=== PATIENT | male | born 1980 | race Caucasian/White ===

== ENCOUNTER 2021-01-21 03:53 | Emergency (ER) | payer OTHER ==
[~2021-01-21] VITALS: Ht 190.5 cm; Wt 133.8 kg
[2021-01-21] MEDS ORDERED: TYLENOL # 31 EA PO (04:11)
[2021-01-21] MEDS ORDERED: PREDNISONE 20 MG TAB PO ONE (04:15)
[2021-01-21] MEDS ORDERED: KETOROLAC TROMETHAMINE 60 MG/2 ML VIAL IM ONE (04:15)
[2021-01-21] MEDS ORDERED: PREDNISONE20 MG PO (04:18)
[2021-01-21] MEDS ORDERED: PREDNISONE 20 MG TAB ONE (04:19)
== END 2021-01-21 04:41 | disposition home or self-care (01) ==
LOC: FSED 04:04
DX: M79.674 Pain in right toe(s) (principal); M10.9 Gout, unspecified; K21.9 Gastro-esophageal reflux disease without esophagitis; Z87.442 Personal history of urinary calculi
CPT/HCPCS: 99282; J1885; J7512